=== PATIENT | female | born 1945 | race Caucasian/White ===

== ENCOUNTER 2019-05-20 09:54 | Emergency (ER) | payer MEDICARE, BC ==
[2019-05-20 10:12] VITALS: BP 166/82
--- NOTE | 2019-05-20 10:27 | UC ---
Shoulder Pain HPI - HPI Summary HPI Summary: patient has had R shoulder pain for 3-4 days, has been getting worse over past 2 days. no fall or injury but seemed to start after heavy house cleaning. she remembers having same symptoms in past and received a cortisone shot in shoulder and then started Aleve and pain resolved in 4-5 days - History of Current Complaint Chief Complaint: UCUpperExtremity Stated Complaint: PAIN RIGHT ARM Time Seen by Provider: 05/20/19 09:56 Hx Obtained From: Patient Onset/Duration: Gradual Onset Timing: Constant Severity Initially: Mild Severity Currently: Severe Location Of Pain: Is Discrete @ - R shoulder Pain Intensity: 10 Character: Throbbing, Burning Aggravating Factor(s): Movement Alleviating Factor(s): Rest Associated Signs And Symptoms: Negative: Swelling, Redness Related History: Similar Episode/Dx As - bursitis - Allergies/Home Medications Allergies/Adverse Reactions: Allergies Allergy/AdvReac Type Severity Reaction Status Date / Time No Known Allergies Allergy Verified 05/20/19 10:01 PMH/Surg Hx/FS Hx/Imm Hx Previously Healthy: Yes - Surgical History Surgical History: Yes Surgery Procedure, Year, and Place: CSECTION X2. ORIF L ANKLE 2004 [facility] [place] - Family History Known Family History: Positive: Hypertension - Social History Occupation: Retired Lives: With Family Alcohol Use: None Substance Use Type: None Smoking Status (MU): Former Smoker When Did the Patient Quit Smoking/Using Tobacco: 35 YRS AGO Review of Systems All Other Systems Reviewed And Are Negative: Yes Constitutional: Positive: Negative Skin: Positive: Negative. Negative: Rash, Bruising Respiratory: Positive: Negative Cardiovascular: Positive: Negative Musculoskeletal: Positive: Decreased ROM - R shoulder d/t pain Neurological/Mental Status: Negative: Numbness Psychological: Positive: Negative Is Patient Immunocompromised?: No Physical Exam Triage Information Reviewed: Yes Appearance: Well-Appearing, No Pain Distress, Well-Nourished Vital Signs: Initial Vital Signs Temp 99.8 F 05/20/19 10:02 Pulse 79 05/20/19 10:02 Resp 18 05/20/19 10:02 BP 166/82 05/20/19 10:02 Pulse Ox 97 05/20/19 10:02 Vital Signs Reviewed: Yes Neck exam: Normal Neck: Positive: Supple, Nontender Respiratory Exam: Normal Respiratory: Positive: Lungs clear Cardiovascular Exam: Normal Cardiovascular: Positive: RRR Musculoskeletal: Positive: ROM Limited @ - R shoulder starting at abduction 20 degrees. she has point tenderness anterior R shoulder subdelta bursa area Neurological Exam: Normal Neurological: Positive: Alert Psychological Exam: Normal Skin Exam: Normal Skin: Negative: Rashes Shoulder Course/Dx - Differential Dx/Diagnosis Differential Diagnosis/HQI/PQRI: Bursitis, Contusion, Rotator Cuff Injury, Sprain, Strain Provider Diagnosis: Shingles Discharge ED - Sign-Out/Discharge Documenting (check all that apply): Patient Departure All imaging exams completed and their final reports reviewed: No Studies - Discharge Plan Condition: Good Disposition: HOME Patient Education Materials: Shoulder Bursitis (ED) Referrals: Aydin Gold MD [Primary Care Provider] - 2 Days (if no better, recheck Blood pressure) Additional Instructions: start Anaprox TOMORROW - none today because we gave you prednisone apply warm pack to area of pain and use sling when awake tomorrow take Anaprox (over the counter) as directed with food - Billing Disposition and Condition Condition: GOOD Disposition: Home
== END 2019-05-20 11:20 | disposition home or self-care (01) ==
LOC: UCEAST 09:54
DX: M75.51 Bursitis of right shoulder (principal); Z87.891 Personal history of nicotine dependence
CPT/HCPCS: 99213; G0463; J7512